=== PATIENT | female | born 1955 | race Caucasian/White ===

== ENCOUNTER → 2019-03-21 | Outpatient (CLI) | payer BC ==
[~2019-03-21] MED LIST: ANAS1 PO; ASPI81EC PO; BUPR150T2; Coq-10100 MG; ESTMET; FISH1000; MELA3; ONDA4ODT MM; ONDA8 PO; OXYACE5T PO; PENVK500 PO; PROACE100 PO
[2019-03-21 16:18] LABS: BASOPHILS ABSOLUTE AUTO 0.06 K/mm3 (0.00-0.23); BASOPHILS PERCENT AUTO 1 % (0-2); EOSINOPHILS ABSOLUTE AUTO 0.11 K/mm3 (0.00-0.68); EOSINOPHILS PERCENT AUTO 2 % (0-6); Hemoglobin 13.5 g/dL (11.5-16.0); IMMATURE GRAN ABSOLUTE AUTO 0.03 K/mm3 (0.00-0.10); IMMATURE GRAN PERCENT AUTO 1 % (0-1); LYMPHOCYTES ABSOLUTE AUTO 1.93 K/mm3 (0.84-5.20); LYMPHOCYTES PERCENT AUTO 33 % (21-46); MONOCYTES ABSOLUTE AUTO 0.32 K/mm3 (0.16-1.47); MONOCYTES PERCENT AUTO 5 % (4-13); Mean Corpuscular HGB 29.5 pg (26.0-34.0); Mean Corpuscular HGB Conc 32.9 g/dL (31.5-36.5); Mean Corpuscular Volume 90 fL (80-100); Mean Platelet Volume 9.7 fL (9.1-12.4); NEUTROPHILS ABSOLUTE AUTO 3.44 K/mm3 (1.96-9.15); NEUTROPHILS PERCENT AUTO 58 % (41-73); Platelet Count 226 K/mm3 (150-400); RDW Coefficient Variation 13.9 % (11.7-14.2); RDW Standard Deviation 45.6 fL (35.1-46.3); Red Blood Cell Count 4.57 M/mm3 (3.80-5.20); White Blood Cell Count 5.89 K/mm3 (4.00-11.30)
[2019-03-21 16:31] LABS: Albumin, Blood 3.7 g/dL (3.4-5.0); Albumin/Globulin Ratio 0.9 (0.8-1.8); Bilirubin, Total 0.4 mg/dL (0.1-1.0); Calcium, Blood 8.5 mg/dL (8.5-10.1); Globulin, Blood 4.2 g/dL (2.2-4.0); Potassium, Blood 3.8 mmol/L (3.5-5.5); Total Protein, Blood 7.9 g/dL (6.4-8.2)
== END | disposition home or self-care (01) ==
LOC: LAB EV 15:59 → LAB SHORT 15:59
PROVIDERS: Physician Assistant Medical
DX: R22.42 Localized swelling, mass and lump, left lower limb (principal)
CPT/HCPCS: 80053; 85025

== ENCOUNTER 2024-07-16 08:58 | Emergency (ER) | payer OTHER ==
[~2024-07-16] VITALS: Ht 152.4 cm; Wt 70.0 kg
[~2024-07-16 08:58] MED LIST changes: -ASPI81EC PO; +Aspir 8181 MG PO; +Prednisone10 MG PO
[2024-07-16] MEDS ORDERED: EUTHYROX75 MC1 PO (09:28)
[2024-07-16] MEDS ORDERED: ROSUVASTATIN CA10 MG PO (09:28)
[2024-07-16] MEDS ORDERED: BUPR150ER PO (09:28)
[2024-07-16] MEDS ORDERED: Ketorolac Tromethamine 30mg Vial IM ONE (10:30)
[2024-07-16] MEDS ORDERED: Lidocaine 4% 1 Patch TOP ONE (10:30)
[2024-07-16] MEDS ORDERED: CYCL10 PO (12:02)
[2024-07-16] MEDS ORDERED: LIDO700A20 TOP (12:02)
[2024-07-16 12:27] VITALS: BP 143/96
== END 2024-07-16 12:25 | disposition home or self-care (01) ==
LOC: ER 08:58
DX: S16.1XXA Strain of muscle, fascia and tendon at neck level, initial encounter (principal); S40.022A Contusion of left upper arm, initial encounter; Z88.5 Allergy status to narcotic agent; Z79.82 Long term (current) use of aspirin; Z79.51 Long term (current) use of inhaled steroids; Z79.899 Other long term (current) drug therapy; V89.2XXA Person injured in unspecified motor-vehicle accident, traffic, initial encounter
CPT/HCPCS: 70450; 72125; 73030; 73060; 96372; 99284-25; A9270; J1885